=== PATIENT | female | born 1965 | race American Indian/Alaskan Native ===

== ENCOUNTER 2019-02-12 04:11 | Inpatient (IN) | payer BC ==
[2019-02-12] MEDS ORDERED: ASPIRIN PO ONE (04:17)
--- NOTE | 2019-02-12 04:39 | XRay Report ---
CHEST 1 VIEW 02/12/2019 4:34 AM INDICATION / CLINICAL INFORMATION: Chest pain for 2 days with nausea and clammy skin. COMPARISON: None available. FINDINGS: SUPPORT DEVICES: None. HEART / MEDIASTINUM: No significant abnormality. LUNGS / PLEURA: No significant pulmonary or pleural abnormality. No pneumothorax. ADDITIONAL FINDINGS: No significant additional findings. IMPRESSION: No acute findings. Signer Name: Gavin Miller MD Signed: 02/12/2019 4:35 AM Workstation Name: [id number]
[2019-02-12 05:00] LABS: Basophils % (Auto) 0.5 % (0.0-1.8); Eosinophils # (Auto) 0.3 K/mm3 (0.0-0.4); Hematocrit 41.6 % (30.3-42.9); Hemoglobin 13.5 gm/dl (10.1-14.3); Lymphocytes # (Auto) 3.2 K/mm3 (1.2-5.4); Lymphocytes % (Auto) 40.6 % (13.4-35.0); Mean Corpuscular HGB Conc 33 % (30-34); Mean Corpuscular Volume 79 fl (79-97); Monocytes # (Auto) 0.7 K/mm3 (0.0-0.8); Monocytes % (Auto) 8.4 % (0.0-7.3); Platelet Count 265 K/mm3 (140-440); Red Blood Count 5.26 M/mm3 (3.65-5.03); Red Cell Distribution Width 14.5 % (13.2-15.2)
[2019-02-12 05:16] LABS: BUN/Creatinine Ratio 19; Blood Urea Nitrogen 17 mg/dL (7-17); Calcium 9.3 mg/dL (8.4-10.2); Hemolysis Index 10
[2019-02-12] MEDS ORDERED: ASPIRIN ONE (06:56)
--- NOTE | 2019-02-12 08:30 | Emergency Department Report ---
ED Chest Pain HPI - General Chief Complaint: Chest Pain Stated Complaint: CHEST PAIN Time Seen by Provider: 02/12/19 08:00 Source: patient Mode of arrival: Ambulatory Limitations: No Limitations - History of Present Illness Initial Comments: 53-year-old female with past medical history of hypertension, and obesity presents to Hospital complaints of left-sided chest pain 2 days. Pain is intermittent, dull, occurs at rest, and last for several seconds prior to resolving. Positive associated nausea with some dry heaves. This morning she woke up diaphoretic. She denies of breath, fatigue, Calf Tenderness, leg edema, or recent travel. Patient states she had a near syncopal episode where her last stress test performed sometime between [id number]. She did not have a cardiac cath performed. She does not smoke cigarettes or take aspirin daily. Her father had CAD and at the age of 64. PMD: Dr. Keira Suarez Severity scale (0 -10): 6 - Related Data Allergies Allergy/AdvReac Type Severity Reaction Status Date / Time No Known Allergies Allergy Verified 02/12/19 04:16 Heart Score - HEART Score History: Moderately suspicious EKG: Non-specific Age: 45-65 Risk factors: > 3 risk factors or hx of atherosclerotic disease Troponin: < normal limit HEART Score: 5 ED Review of Systems ROS: Stated complaint: CHEST PAIN Other details as noted in HPI Comment: All other systems reviewed and negative ED Past Medical Hx - Past Medical History Previous Medical History?: Yes Hx Hypertension: Yes - Surgical History Past Surgical History?: Yes Hx Breast Surgery: Yes (biospy) Additional Surgical History: hysterectomy - Social History Smoking Status: Never Smoker Substance Use Type: None ED Physical Exam - General Limitations: No Limitations - Other Other exam information: General: No limitations, patient is alert in no acute distress Head exam: Atraumatic, normocephalic Eyes exam: Normal appearance, pupils equal reactive to light, extraocular movements intact ENT: Moist mucous membrane Neck exam: Normal inspection, full range of motion, no meningismus nontender Respiratory exam: Clear to auscultation bilateral, no wheezes, rales, crackles, mild left-sided chest wall tenderness Cardiovascular: Normal rate and rhythm Abdomen: Soft, nondistended, and nontender, with normal bowel sounds, no rebound, or guarding Extremity: Full range of motion normal inspection no deformity, no calf tenderness or leg edema Back: Normal Inspection, full range of motion, no tenderness Neurologic: Alert, oriented x3, cranial nerves intact, no motor or sensory deficit Psychiatric: normal affect, normal mood Skin: Warm, dry, intact ED Course Vital Signs 02/12/19 02/12/19 02/12/19 04:15 06:52 06:53 Temperature 98.4 F Pulse Rate 89 77 Respiratory 18 18 20 Rate Blood Pressure 148/77 Blood Pressure 121/34 [Right] O2 Sat by Pulse 99 99 Oximetry JOSELINE score - Joseline Score Age > 65: (0) No Aspirin use within the Past 7 Days: (0) No 3 or more CAD Risk Factors: (1) Yes 2 or more Angina events in past 24 hrs: (1) Yes Known CAD with more than 50% Stenosis: (0) No Elevated Cardiac Markers: (0) No ST Deviation Greater than 0.5mm: (0) No JOSELINE Score: 2 ED Medical Decision Making - Lab Data Result diagrams: 02/12/19 04:40 02/12/19 04:40 Lab Results 02/12/19 02/12/19 02/12/19 Range/Units 04:40 04:40 07:00 WBC 7.8 (4.5-11.0) K/mm3 RBC 5.26 H (3.65-5.03) M/mm3 Hgb 13.5 (10.1-14.3) gm/dl Hct 41.6 (30.3-42.9) % MCV 79 (79-97) fl MCH 26 L (28-32) pg MCHC 33 (30-34) % RDW 14.5 (13.2-15.2) % Plt Count 265 (140-440) K/mm3 Lymph % (Auto) 40.6 H (13.4-35.0) % [place] % (Auto) 8.4 H (0.0-7.3) % Eos % (Auto) 4.0 (0.0-4.3) % Baso % (Auto) 0.5 (0.0-1.8) % Lymph # 3.2 (1.2-5.4) K/mm3 [place] # 0.7 (0.0-0.8) K/mm3 Eos # 0.3 (0.0-0.4) K/mm3 Baso # 0.0 (0.0-0.1) K/mm3 Seg Neutrophils % 46.5 (40.0-70.0) % Seg Neutrophils # 3.6 (1.8-7.7) K/mm3 Sodium 142 (137-145) mmol/L Potassium 3.8 (3.6-5.0) mmol/L Chloride 100.9 (98-107) mmol/L Carbon Dioxide 29 (22-30) mmol/L Anion Gap 16 mmol/L BUN 17 (7-17) mg/dL Creatinine 0.9 (0.7-1.2) mg/dL Estimated GFR > 60 ml/min BUN/Creatinine Ratio 19 % Glucose 128 H (65-100) mg/dL Calcium 9.3 (8.4-10.2) mg/dL Troponin T < 0.010 < 0.010 (0.00-0.029) ng/mL - EKG Data -: EKG Interpreted by Co EKG shows normal: sinus rhythm, axis (qrs 11), QRS complexes (qrsd 88), ST-T waves (no stemi) Rate: normal (82 ) - EKG Data When compared to previous EKG there are: previous EKG unavailable - Radiology Data Radiology results: report reviewed (cxr naf) - Medical Decision Making Patient has several cardiac risk factors with complaints of chest pain 2 days with diaphoresis this morning. Her heart score is 5. No signs of ST elevation LA or elevated troponin in the ED. Patient provided aspirin. Will be admitted to the hospitalist service for further cardiac workup. - Differential Diagnosis LA, unstable angina, costochondritis, atypical chest pain, pulmonary emboli Critical Care Time: No Critical care attestation.: If time is entered above; I have spent that time in minutes in the direct care of this critically ill patient, excluding procedure time. ED Disposition Clinical Impression: Chest pain, Obesity, HTN (hypertension) Disposition: OP ADMIT IP TO THIS HOSP Is pt being admited?: Yes Does the pt Need Aspirin: Yes Condition: Stable Time of Disposition: 08:29 (Dr Lora/hosp)
[2019-02-12] MEDS ORDERED: AMBIEN PO PRN ×2 (09:22→22:00)
[2019-02-12] MEDS ORDERED: NITROSTAT SL PRN (09:22)
[2019-02-12] MEDS ORDERED: PERCOCET 5/325 PO PRN (09:22)
[2019-02-12] MEDS ORDERED: SODIUM CHLORIDE FLUSH SYRINGE 10 ML IV PRN ×2 (09:22)
[2019-02-12] MEDS ORDERED: TYLENOL PO PRN (09:22)
[2019-02-12] MEDS ORDERED: MORPHINE IV PRN (09:22)
[2019-02-12] MEDS ORDERED: ZOFRAN IV PRN (09:22)
[2019-02-12 09:57] LABS: Basophils % (Auto) 0.6 % (0.0-1.8); Eosinophils % (Auto) 0.4 % (0.0-4.3); Hematocrit 40.2 % (30.3-42.9); Hemoglobin 13.3 gm/dl (10.1-14.3); Lymphocytes # (Auto) 1.5 K/mm3 (1.2-5.4); Lymphocytes % (Auto) 23.2 % (13.4-35.0); Mean Corpuscular HGB Conc 33 % (30-34); Mean Corpuscular Volume 78 fl (79-97); Monocytes # (Auto) 0.3 K/mm3 (0.0-0.8); Monocytes % (Auto) 5.2 % (0.0-7.3); Platelet Count 243 K/mm3 (140-440); Red Blood Count 5.15 M/mm3 (3.65-5.03); Red Cell Distribution Width 14.7 % (13.2-15.2)
[2019-02-12 10:05] LABS: BUN/Creatinine Ratio 19; Blood Urea Nitrogen 13 mg/dL (7-17); Calcium 9.3 mg/dL (8.4-10.2); Hemolysis Index 44
[2019-02-12 10:30] LABS: Chol/HDL Ratio 3.01 %
[2019-02-12 10:37] LABS: Bilirubin,Urine NEG (Negative); Blood,Urine NEG (Negative); Color,Urine Yellow (Yellow); Mucus,Urine FEW /HPF; Protein,Urine <15 mg/dL mg/dL (Negative); Urobilinogen,Urine < 2.0 mg/dL (<2.0); WBC,Urine < 1.0 /HPF (0.0-6.0)
[2019-02-12] MEDS: SODIUM CHLORIDE FLUSH SYRINGE 10 ML IV SCH ×2 (11:00→23:05)
[2019-02-12] MEDS: LOVENOX SUB-Q SCH (11:30)
--- NOTE | 2019-02-12 21:22 | History and Physical Report ---
History of Present Illness Date of examination: 02/12/19 Date of admission: 02/12/19 08:42 Chief complaint: Chest pain History of present illness: Patient is a 53-year-old female with history of hypertension obesity presented with left-sided chest pain for 2 days progressively got worse. Chest pain was mostly at rest. Radiating down arm at times. Patient state she went to sleep and woke up sweating a little nauseated with pressure in her chest. Patient denies goal to bear with any chest pain. Patient describes pain as approximately 5 out of 10 and mobile pressure. Not associated with shortness of breath but it was associated with fatigue and diaphoresis and some nausea. Patient also states she's noticed some lower extremity edema. Patient gives a h istory of stress test around 2016 in which she had to stop because she failed. Patient does not remember cardiac catheterization at all. Patient states this episode was unlike the previous episode she had. Present patient is chest pain- free. She does have some recent reproducible chest pain when I press area objectively. Patient denies tobacco. Past History Past Medical History: arrhythmia, hypertension. denies: acute [place], atrial fib, anemia, arthritis, CAD, cancer, COPD, diabetes, dialysis, DVT, ESRD, GERD, heart failure, hepatitis, HIV/AIDS, hyperthyroidism, hyperlipidemia, hypothyroidism, liver disease, migraines, pulmonary embolism, renal failure, seizures, stroke, sarcoidosis Past Surgical History: hysterectomy. denies: appendectomy, abd. aortic aneurysm repair, arthroscopy, valve replacement, CABG Social history: , lives with family, full code. denies: smoking, alcohol abuse, IV drug use, AND/DNR-allow natural Family history: diabetes, hypertension Medications and Allergies Allergies Allergy/AdvReac Type Severity Reaction Status Date / Time No Known Allergies Allergy Verified 02/12/19 04:16 Home Medications Medication Instructions Recorded Confirmed Last Taken Type Metoprolol/Hydrochlorothiazide 1 tab PO QDAY 02/12/19 02/12/19 Unknown History [Metoprolol HCTZ 50-25 mg TAB] Active Meds: Active Medications Acetaminophen (Tylenol) 650 mg PO Q4H PRN PRN Reason: Pain MILD(1-3)/Fever >100.5/CRAIG Aspirin (Ecotrin) 325 mg PO QDAY [facility] Atorvastatin Calcium (Lipitor) 10 mg PO QHS [facility] Enoxaparin Sodium (Lovenox) 40 mg SUB-Q QDAY [facility] Last Admin: 02/12/19 11:30 Dose: 40 mg Documented by: Morphine Sulfate (Morphine) 2 mg IV Q4H PRN PRN Reason: Pain, Moderate (4-6) Nitroglycerin (Nitrostat) 0.4 mg SL Q5M PRN PRN Reason: Chest Pain Ondansetron HCl (Zofran) 4 mg IV Q8H PRN PRN Reason: Nausea And Vomiting Oxycodone/Acetaminophen (Percocet 5/325) 1 tab PO Q6H PRN PRN Reason: Pain, Moderate (4-6) Sodium Chloride (Sodium Chloride Flush Syringe 10 Ml) 10 ml IV BID [facility] Last Admin: 02/12/19 11:00 Dose: 10 ml Documented by: Sodium Chloride (Sodium Chloride Flush Syringe 10 Ml) 10 ml IV PRN PRN PRN Reason: LINE FLUSH Sodium Chloride (Sodium Chloride Flush Syringe 10 Ml) 10 ml IV PRN PRN PRN Reason: LINE FLUSH Zolpidem Tartrate (Ambien) 10 mg PO QHS PRN PRN Reason: Insomnia Review of Systems Constitutional: fatigue, no weight loss, no weight gain, no fever, no chills, no sweats, no night sweats, no anorexia, no weakness, no malaise, no lethargy, no poor appetite, no daytime sleepiness, no chronic pain Ears, nose, mouth and throat: no ear discharge, no nose pain, no nasal congestion, no nasal discharge, no sinus pressure, no dental pain, no dysphagia, no swelling in mouth, no post-nasal drip, no vertigo, no neck fullness/pressure, no neck lump Cardiovascular: chest pain, orthopnea, lightheadedness, shortness of breath, dyspnea on exertion, high blood pressure, leg edema, decreased exercise paula erance, no palpitations, no rapid/irregular heart beat, no edema, no syncope, no paroxysmal nocturnal dyspnea, no claudication, no phlebitis Respiratory: cough, shortness of breath, dyspnea on exertion, no cough with sputum, no excessive sputum, no hemoptysis, no congestion, no wheezing, no pleurisy, no pain, no pain on inspiration, no sleep apnea, no respiratory infections, no home oxygen Gastrointestinal: nausea, no constipation, no hematochezia, no early satiety, no heartburn, no indigestion, no jaundice, no dyspepsia/bloating, no early satiety Genitourinary Female: no pelvic pain, no menorrhagia, no urinary frequency, no urge incontinence, no mixed incontinence, no nocturia, no vaginal discharge Musculoskeletal: no neck stiffness, no shooting arm pain, no arm numbness/tingling, no low back pain, no shooting leg pain, no leg numbness/tingling, no redness of joints, no hot joints, no muscle weakness, no muscle cramps, no myalgias, no limitation of motion, no gait dysfunction, no frequent falls, no fractures, no loss of height, no prior amputations, no arthritis Neurological: no paralysis, no weakness, no numbness, no tingling, no seizures, no tremors, no migraines, no aphasia, no change in mentation, no confusion, no changes in smell/taste, no motor disturbance, no double vision, no loss of vision, no paralysis Psychiatric: no anxiety, no change in sleep habits, no hypersomnia, no change in libido, no disorientation, no hallucinations, no paranoia, no hopelessness Endocrine: no heat intolerance, no polyphagia, no excessive thirst, no polydipsia, no flushing, no weight change, no increase in ring/shoe/hat size, no proptosis, no high blood sugars, no recent glucocorticoid use Hematologic/Lymphatic: no easy bruising, no lymphedema Allergic/Immunologic: no allergic rhinitis, no persistent infections, no gluten intolerance, no seasonal allergies Exam - Constitutional Vitals: Temp Pulse Resp BP Pulse Ox 98.0 F 69 18 135/50 95 02/12/19 19:56 02/12/19 19:56 02/12/19 19:56 02/12/19 19:56 02/12/19 19:56 General appearance: Present: no acute distress, well-nourished - EENT Eyes: Present: PERRL ENT: hearing intact, clear oral mucosa - Neck Neck: Present: supple, normal ROM - Respiratory Respiratory effort: normal Respiratory: bilateral: CTA - Cardiovascular Heart Sounds: Present: S1 & S2. Absent: rub, click - Extremities Extremities: pulses symmetrical Extremity abnormal: edema Peripheral Pulses: within normal limits - Abdominal General gastrointestinal: Present: soft, non-tender, non-distended, normal bowel sounds Female genitourinary: Present: normal - Integumentary Integumentary: Present: clear, warm, dry - Musculoskeletal Musculoskeletal: gait normal, strength equal bilaterally - Psychiatric Psychiatric: appropriate mood/affect, intact judgment & insight - Neurologic Neurologic: CNII-XII intact, moves all extremities Results - Labs CBC & Chem 7: 02/12/19 09:34 02/12/19 09:34 Labs: Laboratory Last Values WBC 6.3 K/mm3 (4.5-11.0) 02/12/19 09:34 RBC 5.15 M/mm3 (3.65-5.03) H 02/12/19 09:34 Hgb 13.3 gm/dl (10.1-14.3) 02/12/19 09:34 Hct 40.2 % (30.3-42.9) 02/12/19 09:34 MCV 78 fl (79-97) L 02/12/19 09:34 MCH 26 pg (28-32) L 02/12/19 09:34 MCHC 33 % (30-34) 02/12/19 09:34 RDW 14.7 % (13.2-15.2) 02/12/19 09:34 Plt Count 243 K/mm3 (140-440) 02/12/19 09:34 Lymph % (Auto) 23.2 % (13.4-35.0) 02/12/19 09:34 [place] % (Auto) 5.2 % (0.0-7.3) 02/12/19 09:34 Eos % (Auto) 0.4 % (0.0-4.3) 02/12/19 09:34 Baso % (Auto) 0.6 % (0.0-1.8) 02/12/19 09:34 Lymph # 1.5 K/mm3 (1.2-5.4) 02/12/19 09:34 [place] # 0.3 K/mm3 (0.0-0.8) 02/12/19 09:34 Eos # 0.0 K/mm3 (0.0-0.4) 02/12/19 09:34 Baso # 0.0 K/mm3 (0.0-0.1) 02/12/19 09:34 Seg Neutrophils % 70.6 % (40.0-70.0) H 02/12/19 09:34 Seg Neutrophils # 4.5 K/mm3 (1.8-7.7) 02/12/19 09:34 Sodium 140 mmol/L (137-145) 02/12/19 09:34 Potassium 4.1 mmol/L (3.6-5.0) 02/12/19 09:34 Chloride 101.1 mmol/L (98-107) 02/12/19 09:34 Carbon Dioxide 29 mmol/L (22-30) 02/12/19 09:34 14 mmol/L 02/12/19 09:34 BUN 13 mg/dL (7-17) 02/12/19 09:34 0.7 mg/dL (0.7-1.2) 02/12/19 09:34 Estimated GFR > 60 ml/min 02/12/19 09:34 19 % 02/12/19 09:34 Glucose 118 mg/dL (65-100) H 02/12/19 09:34 6.1 % (4-6) H 02/12/19 09:34 Calcium 9.3 mg/dL (8.4-10.2) 02/12/19 09:34 < 0.010 ng/mL (0.00-0.029) 02/12/19 09:35 Triglycerides 44 mg/dL (2-149) 02/12/19 09:34 Cholesterol 166 mg/dL (50-199) 02/12/19 09:34 107 mg/dL (50-130) 02/12/19 09:34 55 mg/dL (40-59) 02/12/19 09:34 3.01 % 02/12/19 09:34 Yellow (Yellow) 02/12/19 Unknown Clear (Clear) 02/12/19 Unknown 6.0 (5.0-7.0) 02/12/19 Unknown Ur Specific Orange 1.016 (1.003-1.030) 02/12/19 Unknown <15 mg/dl mg/dL (Negative) 02/12/19 Unknown Neg mg/dL (Negative) 02/12/19 Unknown Neg mg/dL (Negative) 02/12/19 Unknown Neg (Negative) 02/12/19 Unknown Neg (Negative) 02/12/19 Unknown Neg (Negative) 02/12/19 Unknown < 2.0 mg/dL (<2.0) 02/12/19 Unknown Ur Leukocyte Esterase Neg (Negative) 02/12/19 Unknown < 1.0 /HPF (0.0-6.0) 02/12/19 Unknown 2.0 /HPF (0.0-6.0) 02/12/19 Unknown U Epithel Cells (Auto) 1.0 /HPF (0-13.0) 02/12/19 Unknown Few /HPF 02/12/19 Unknown - Imaging and Cardiology EKG: image reviewed Chest x-ray: image reviewed Assessment and Plan Advance Directives: Yes VTE prophylaxis?: Chemical Plan of care discussed with patient/family: Yes - Patient Problems (1) Chest pain Current Visit: Yes Status: Acute Plan to address problem: Patient is with chest pain substernal described as pressure associated with some diaphoresis nausea happened at rest. Risk factors of hypertension morbid obesity. Has had failed stress test in the past. We will admit aggressive risk factor reduction obtain AODA oh. Echocardiogram to establish any structural heart disease or congestive heart failure. We'll call stress test. Cardiology consult for any further recommendations. We'll restart beta abdifatah at this point. (2) HTN (hypertension) Current Visit: Yes Status: Acute Plan to address problem: Restart beta abdifatah at this time. Metoprolol. Her sugars seem to be favorable suboptimally controlled. We'll advance as tolerated. (3) Obesity Current Visit: Yes Status: Acute Qualifiers: Body mass index: BMI 39.0-39.9 Plan to address problem: Patient educated about lifestyle changes exercise. She does have some arthritis in her knee. Diet low-sodium diet. Low carb diet.
[2019-02-13 06:34] LABS: BUN/Creatinine Ratio 20; Blood Urea Nitrogen 12 mg/dL (7-17); Calcium 8.8 mg/dL (8.4-10.2); Hemolysis Index 12
[2019-02-13] MEDS ORDERED: LEXISCAN IV ONE (07:52)
[2019-02-13] MEDS ORDERED: ECOTRIN PO SCH (10:00)
[2019-02-13] MEDS: LOVENOX SUB-Q SCH (10:15)
[2019-02-13] MEDS: SODIUM CHLORIDE FLUSH SYRINGE 10 ML IV SCH (10:15)
--- NOTE | 2019-02-13 10:58 | Discharge Summary ---
Providers - Providers Date of Admission: 02/12/19 08:42 Date of discharge: 02/13/19 Attending physician: LUCAS GEURIN 02/12/19 Consult to Cardiac Rehabilitation [CONS] Routine Reason For Exam: Phase I 02/12/19 09:23 Consult to Cardiology [CONS] Routine Consulting Provider: JOHN ISLAS Reason For Exam: chest pain failed stress test Primary care physician: JOSETTE KELLY DO Hospitalization Reason for admission: cp Condition: Stable Hospital course: Patient is a 53-year-old female with history of hypertension obesity presented with left-sided chest pain for 2 days progressively got worse prior to admission. Chest pain was mostly at rest. Patient was admitted overnight on telemetry. Patient had no ectopy. EKG showed no acute changes. Cardiac isoenzymes were negative. Patient underwent stress test that was found to be negative. Echocardiogram with followed up as an outpatient. Patient is felt to receive maximal hospital benefit and will be discharged home. Etiology of chest pain is secondary to GERD. Dedicated discharge time 32 minutes. Disposition: TO HOME OR SELFCARE Time spent for discharge: 32 - Discharge Diagnoses (1) Chest pain Status: Acute (2) HTN (hypertension) Status: Acute (3) Obesity Status: Acute Qualifiers: Body mass index: BMI 39.0-39.9 Core Measure Documentation - Palliative Care Palliative Care/ Comfort Measures: Not Applicable - Core Measures Any of the following diagnoses?: none Exam - Constitutional Vitals: Temp Pulse Resp BP Pulse Ox 98.3 F 57 L 19 131/47 93 02/13/19 03:58 02/13/19 10:00 02/13/19 03:58 02/13/19 03:58 02/13/19 03:58 General appearance: Present: no acute distress, well-nourished - EENT Eyes: Present: PERRL ENT: hearing intact, clear oral mucosa - Neck Neck: Present: supple, normal ROM - Respiratory Respiratory effort: normal Respiratory: bilateral: CTA - Cardiovascular Heart Sounds: Present: S1 & S2. Absent: rub, click - Extremities Extremities: pulses symmetrical, No edema Peripheral Pulses: within normal limits - Abdominal General gastrointestinal: Present: soft, non-tender, non-distended, normal bowel sounds Female genitourinary: Present: normal - Integumentary Integumentary: Present: clear, warm, dry - Musculoskeletal Musculoskeletal: gait normal, strength equal bilaterally - Psychiatric Psychiatric: appropriate mood/affect, intact judgment & insight - Neurologic Neurologic: CNII-XII intact, moves all extremities Plan Activity: no restrictions Weight Bearing Status: Full Weight Bearing Diet: low fat, low cholesterol, low salt Follow up with: JOSETTE KELLY DO [Primary Care Provider] - 7 Days
[2019-02-13 12:01] VITALS: BP 140/45
--- NOTE | 2019-02-13 14:43 | Consultation ---
History of Present Illness Consult date: 02/13/19 Consult reason: chest pain History of present illness: 53-year-old woman admitted with complaints of nonexertional, atypical, poorly characterized chest pain. Serial ECGs are normal sinus rhythm with no ischemic changes, serial cardiac enzymes are negative. She was ordered for a Lexiscan thallium stress test and cardiac consultation. Lexiscan thallium stress test was normal perfusion, normal left ventricular systolic function. Past History Past Medical History: arrhythmia, hypertension. denies: acute [place], atrial fib, anemia, arthritis, CAD, cancer, COPD, diabetes, dialysis, DVT, ESRD, GERD, heart failure, hepatitis, HIV/AIDS, hyperthyroidism, hyperlipidemia, hypothyroidism, liver disease, migraines, pulmonary embolism, renal failure, seizures, stroke, sarcoidosis Past Surgical History: hysterectomy. denies: appendectomy, abd. aortic aneurysm repair, arthroscopy, valve replacement, CABG Social history: , lives with family, full code. denies: smoking, alcohol abuse, IV drug use, AND/DNR-allow natural Family history: diabetes, hypertension Medications and Allergies Allergies Allergy/AdvReac Type Severity Reaction Status Date / Time No Known Allergies Allergy Verified 02/12/19 04:16 Home Medications Medication Instructions Recorded Confirmed Last Taken Type Metoprolol/Hydrochlorothiazide 1 tab PO QDAY 02/12/19 02/12/19 Unknown History [Metoprolol HCTZ 50-25 mg TAB] Aspirin EC 325 mg PO QDAY tablet 02/13/19 Unknown Rx Review of Systems Cardiovascular: chest pain, no orthopnea, no palpitations, no rapid/irregular heart beat, no edema, no syncope, no lightheadedness, no shortness of breath Physical Examination Vital Signs Temp Pulse Resp BP Pulse Ox 98.4 F 89 18 148/77 99 02/12/19 04:15 02/12/19 04:15 02/12/19 04:15 02/12/19 04:15 02/12/19 04:15 General appearance: no acute distress HEENT: Positive: PERRL Neck: Positive: neck supple Cardiac: Positive: Reg Rate and Rhythm Lungs: Positive: clear to auscultation Neuro: Positive: Grossly Intact Abdomen: Positive: Soft Female genitourinary: deferred Skin: Positive: Clear Extremities: Absent: edema Results 02/12/19 09:34 07/25/19 05:09 Comprehensive Metabolic Panel 02/13/19 Range/Units 05:09 Sodium 140 (137-145) mmol/L Potassium 3.5 L (3.6-5.0) mmol/L Chloride 101.8 (98-107) mmol/L Carbon Dioxide 26 (22-30) mmol/L BUN 12 (7-17) mg/dL Creatinine 0.6 L (0.7-1.2) mg/dL Glucose 98 (65-100) mg/dL Calcium 8.8 (8.4-10.2) mg/dL EKG interpretations - Telemetry EKG Rhythm: Sinus Rhythm Assessment and Plan - Patient Problems (1) Atypical chest pain Status: Acute Plan to address problem: Cardiac workup is negative, serial cardiac enzymes, serial ECGs and Lexiscan thallium stress test all within normal limits. Patient is stable for cardiac discharge, follow-up in our office in 7-10 days. Return immediately to the emergency room if any recurrent chest pain.
--- NOTE | 2019-02-14 00:02 | Treadmill Report ---
THALLIUM STRESS TEST LEFT VENTRICLE: Left ventricular chamber size is within normal spread. Perfusion study demonstrates homogeneous uptake of the tracer in all segments, no significant defects identified. Gated analysis demonstrates normal left ventricular systolic function, ejection fraction 67%. CONCLUSION: Normal myocardial perfusion study. JOB# [id number] CA/NTS
== END 2019-02-13 14:21 | disposition home or self-care (01) | DRG 392 ==
LOC: ED 04:11 → 4A 08:42
PROVIDERS: ADMIT Internal Medicine; ATTEND Hospitalist
DX: K21.9 Gastro-esophageal reflux disease without esophagitis (principal); Z68.42 Body mass index [BMI] 45.0-49.9, adult; E66.9 Obesity, unspecified; I10 Essential (primary) hypertension; Z90.710 Acquired absence of both cervix and uterus; Z82.49 Family history of ischemic heart disease and other diseases of the circulatory system; Z83.3 Family history of diabetes mellitus; Z79.82 Long term (current) use of aspirin; Z79.899 Other long term (current) drug therapy
CPT/HCPCS: 36415; 71045; 78452; 80048; 80061; 81001; 83036; 84484; 85025; 93005; 93010; 93017; 93306; G0378; A9270-GY; A9502; J1650; J2785